=== PATIENT | female | born 1945 | race Caucasian/White ===

== ENCOUNTER 2016-08-06 06:50 | Day surgery (SDC) | payer OTHER, BC ==
[2016-08-06 07:40] VITALS: BMI 27.4
[2016-08-06] MEDS ORDERED: PROPOFOL 20 ML ONE ×2 (07:58)
[2016-08-06 08:36] VITALS: TEMP 97.5
[2016-08-06 09:32] VITALS: BP 117/79; PULSE 66
== END 2016-08-06 09:32 | disposition home or self-care (01) ==
LOC: JASU-ENDO 06:50
PROVIDERS: ATTEND Internal Medicine Gastroenterology
PROC: 0DJD8ZZ Inspection of Lower Intestinal Tract, Via Natural or Artificial Opening Endoscopic (ICD-10-PCS; principal; 2016-08-06 08:00)
DX: Z12.11 Encounter for screening for malignant neoplasm of colon (principal); K64.8 Other hemorrhoids; K57.30 Diverticulosis of large intestine without perforation or abscess without bleeding

== ENCOUNTER 2021-04-08 08:10 | Emergency (ER) | payer OTHER, BC ==
[2021-04-08 08:15] VITALS: BP 125/62; PULSE 103; TEMP 97.3; BMI 28.3
[2021-04-08] MEDS ORDERED: ACETAMINOPHEN 500 MG TABLET (FP) PO ONE (08:45)
[2021-04-08] MEDS ORDERED: ACETAMINOPHEN 500 MG TABLET (FP) ONE (08:49)
== END 2021-04-08 10:09 | disposition home or self-care (01) ==
LOC: JER 08:10 → JERFT 08:10
DX: S52.301A Unspecified fracture of shaft of right radius, initial encounter for closed fracture (principal); S52.611A Displaced fracture of right ulna styloid process, initial encounter for closed fracture; W00.0XXA Fall on same level due to ice and snow, initial encounter
CPT/HCPCS: 73090-TC-RT-FY; 73110-TC-RT-FY; 99283-25